=== PATIENT | female | born 1965 | race Caucasian/White ===

== ENCOUNTER → 2021-01-27 11:05 | Outpatient (CLI) | payer BC, SELFPAY ==
--- NOTE | 2021-01-27 | DI.US.S_ITS ---
PROCEDURE: US PELVIC COMPLETE INDICATIONS: Pelvic and perineal pain TECHNIQUE: Real-time scanning was performed of the pelvic organs, with image documentation. Additional endovaginal scanning was necessary due to incomplete visualization of the adnexal and endometrial structures by transabdominal scanning. COMPARISON: [facility], CT, CT KUB, 12/24/2020, 10:52. FINDINGS: Uterus: Uterus is normal in size at 6.6 x 3.5 x 5.3 cm. The uterus demonstrates a heterogeneous appearance, likely related to small fibroids. The endometrium measures 6 mm in combined thickness. Ovaries: The right ovary is not seen. The left ovary measures 1.7 x 1.1 x 1.3 cm and demonstrates a 1.3 cm simple appearing cyst. No adnexal masses are seen on either side. Other: No pathologic free abdominal or pelvic fluid. IMPRESSION: The endometrial stripe is mildly thickened in this postmenopausal patient at 6 mm. Please correlate with a history of postmenopausal bleeding. Differential diagnosis includes endometrial neoplasm and endometrial hyperplasia. Recommend correlation with endometrial histology, if clinically appropriate. Heterogeneous uterus, likely related to small fibroids. Dictated by: Jeffrey Garcia M.D. on 01/27/2021 at 11:26 Approved by: Jeffrey Garcia M.D. on 01/27/2021 at 11:28
== END ==
PROVIDERS: PCP Physician Assistant; Referring Provider Physician Assistant; Visit Provider Physician Assistant
DX: R10.2 Pelvic and perineal pain (principal); R93.89 Abnormal findings on diagnostic imaging of other specified body structures
CPT/HCPCS: 76830; 76856